=== PATIENT | female | born 1965 | race Caucasian/White ===

== ENCOUNTER 2022-08-22 14:59 | Outpatient (CLI) | payer MEDICAID, SELFPAY ==
[2022-08-22 22:19] LABS: Basophils Absolute Auto 0.07 K/uL (0.00-0.30); Basophils Percent Auto 0.8 % (0.0-3.0); Eosinophils Absolute Auto 0.23 K/uL (0.00-0.50); Eosinophils Percent Auto 2.6 % (0.0-7.0); Hematocrit 41.7 % (33.0-51.0); Hemoglobin* 13.9 gm/dL (12.0-16.0); Immature Granulocytes Abs Auto 0.02 K/uL (0.00-0.30); Immature Granulocytes Pct Auto 0.2 %; Lymphocytes Absolute Auto 3.57 K/uL (0.90-2.90); Lymphocytes Percent Auto 40.7 % (20-44); Mean Corpuscular HGB Conc 33 gm/dL (32-36); Mean Corpuscular Hemoglobin 30 pg (26-34); Mean Corpuscular Volume 89 fL (80-100); Monocytes Percent Auto 6.6 % (0.0-11.0); Neutrophils Percent Auto 49.1 % (42.0-72.0); Platelet Count* 358 K/uL (140-440); RDW Coefficient of Variation % 12.7 % (11.5-15.5); Red Blood Count 4.69 m/uL (4.00-5.20); White Blood Count* 8.77 K/uL (4.50-11.00)
[2022-08-22 22:25] LABS: Chloride* 107 mmol/L (96-114); Potassium* 4.8 mmol/L (3.6-5.1); Sodium* 140 mmol/L (135-149)
[2022-08-22 22:27] LABS: Cholesterol* 184 mg/dL (90-199)
[2022-08-22 22:28] LABS: Alanine Aminotransferase* 29 U/L (4-35); Blood Urea Nitrogen* 19 mg/dL (7-30); Carbon Dioxide* 26 mmol/L (20-32); Creatinine* 0.7 mg/dL (0.5-1.5); Estimated Glomerular Filt Rate 101 ml/min; Glucose* 91 mg/dL (60-115); Triglycerides* 366 mg/dL (40-149)
[2022-08-22 22:29] LABS: Calcium* 9.3 mg/dL (8.4-10.6); HDL Cholesterol* 48 mg/dL (>=50); LDL Cholesterol Calculated 63 mg/dL (<100)
[2022-08-22 23:03] LABS: Slide Review Reflex No
== END 2022-08-22 15:00 | disposition home or self-care (01) ==
PROVIDERS: PCP Family Medicine; Visit Provider Family Medicine
DX: E78.5 Hyperlipidemia, unspecified (principal)
CPT/HCPCS: 80048; 80061; 84460; 85025

== ENCOUNTER 2023-09-06 08:32 | Outpatient (CLI) | payer MEDICAID, SELFPAY | END 2023-09-06 08:33 | disposition home or self-care (01) | PROVIDERS: PCP Family Medicine; Visit Provider Family Medicine | DX: E78.2 Mixed hyperlipidemia (principal); Z79.899 Other long term (current) drug therapy | CPT/HCPCS: 80048; 80061; 84460 ==

== ENCOUNTER 2024-06-06 11:43 | Outpatient (CLI) | payer MEDICAID, SELFPAY ==
[2024-06-06 14:36] LABS: Clue Cells No Clue Cells Seen (None Seen); Trichomonas No Trichomonas Seen (None Seen); Yeast No Yeast Seen (None Seen)
[2024-06-06 16:29] LABS: Chlamydia DNA Amplified* NOT DETECTED (No Detected); GC DNA Amplified* NOT DETECTED (No Detected)
[2024-06-08 08:18] LABS: HPV Source Cervix; HPV, High Risk by TMA Not Detected
== END 2024-06-06 11:44 | disposition home or self-care (01) ==
PROVIDERS: PCP Family Medicine; Visit Provider Nurse Practitioner Family
DX: Z11.3 Encounter for screening for infections with a predominantly sexual mode of transmission (principal); Z12.4 Encounter for screening for malignant neoplasm of cervix; Z11.59 Encounter for screening for other viral diseases; Z11.4 Encounter for screening for human immunodeficiency virus [HIV]
CPT/HCPCS: 86592; 86703; 86706; 86803; 87210; 87491; 87529; 87591; 87624; 87625; 88141; 88142

== ENCOUNTER 2024-10-04 11:18 | Outpatient (CLI) | payer MEDICAID, SELFPAY | END 2024-10-04 11:19 | disposition home or self-care (01) | PROVIDERS: PCP Family Medicine; Visit Provider Family Medicine | DX: E78.2 Mixed hyperlipidemia (principal); F41.1 Generalized anxiety disorder; G47.00 Insomnia, unspecified | CPT/HCPCS: 80048; 80061; 84460 ==